=== PATIENT | female | born 1980 | race Caucasian/White ===

== ENCOUNTER 2018-11-17 07:35 | Day surgery (SDC) | payer BC ==
[2018-11-17] MEDS ORDERED: MIDAZOLAM 1 MG/ML 2 ML INJ ×2 (08:58→08:59)
[2018-11-17] MEDS ORDERED: FENTAnyl 50 MCG/ML VIAL (08:58)
== END 2018-11-17 10:43 | disposition home or self-care (01) ==
LOC: GIL 07:35
DX: K64.4 Residual hemorrhoidal skin tags (principal)
CPT/HCPCS: 45378; 84703